=== PATIENT | female | born 1945 | race Caucasian/White ===

== ENCOUNTER → 2017-06-27 | Outpatient (CLI) | payer MEDICARE, OTHER ==
--- NOTE | 2017-06-27 14:06 | KCIC ---
EXAM: Lumbar spine MRI without contrast. HISTORY: Lumbar radiculopathy. TECHNIQUE: Multiplanar, multisequence magnetic resonance imaging of the lumbar spine was performed without contrast. COMPARISON: Radiographs dated 02/05/2017. FINDINGS: There is grade 1 anterolisthesis of L3 on L4, measuring 5 mm. There is 4 mm retrolisthesis of L5 on S1. There is degenerative endplate remodeling with disc space narrowing and osteophytosis primarily at L5-S1. There is diffuse disc desiccation. There are multiple endplate Schmorl's nodes. There are a few vertebral body hemangiomas. No suspicious osseous lesion is seen. The conus terminates at L1. At L1-L2, there is a disc bulge and endplate remodeling. There is no stenosis. At L2-L3, there is a disc bulge and endplate remodeling. There is minimal facet arthropathy. There is mild bilateral foraminal stenosis. At L3-L4, there is a disc bulge and endplate remodeling with posterior annular tear. There is moderate facet arthropathy. There is hypertrophy of the ligamentum flavum. There is grade 1 anterolisthesis. There is mild central canal stenosis. At L4-L5, there is a broad-based shallow posterior central disc protrusion and right foraminal to extraforaminal disc protrusion and annular tear superimposed on a disc bulge and endplate osteophytosis. There is mild facet arthropathy. There is mild right foraminal stenosis. There is mild central canal stenosis. At L5-S1, there are left greater than right foraminal to lateral disc osteophyte complexes superimposed on a disc bulge and endplate osteophytosis. There is mild right and mild to moderate left foraminal stenosis. IMPRESSION: 1. Multilevel degenerative change throughout the lumbar spine, described in detail above. This results in mild bilateral foraminal stenosis at L2-L3, mild central canal stenosis at L3-L4, mild right foraminal and central canal stenosis at L4-L5, and mild right and [id number] left foraminal stenosis at L5-S1. 2. Grade 1 anterolisthesis of L3 on L4 and slight retrolisthesis of L5 on S1. Electronically signed by: Alicia Lemus MD (06/27/2017 2:03 PM) [id number]
== END | disposition home or self-care (01) ==
LOC: KCIC MRI 12:02
PROVIDERS: ATTEND Physician Assistant Medical
DX: M54.16 Radiculopathy, lumbar region (principal); M48.061 Spinal stenosis, lumbar region without neurogenic claudication; M43.16 Spondylolisthesis, lumbar region
CPT/HCPCS: 72148

== ENCOUNTER → 2019-07-27 | Outpatient (CLI) | payer MEDICARE, OTHER ==
[~2019-07-27] MED LIST: FENO145T PO; LEVO100T PO; MONT10TA49 PO; OMEG100021 PO; VENTOLIN HFA18 GM INH
[2019-07-27 09:35] LABS: BASO # 0.1 x10^3/uL (0.0-0.2); BASO % 1 % (0-3); EOS # 0.2 x10^3/uL (0.0-0.7); EOS % 2 % (0-3); HEMATOCRIT 44.4 % (36.0-47.0); LYMPH # 1.3 x10^3/uL (1.0-4.8); LYMPH % 15 % (24-48); MEAN CORPUSCULAR HEMOGLOBIN 32 pg (25-35); MEAN CORPUSCULAR HGB CONC 34 g/dL (31-37); MEAN CORPUSCULAR VOLUME 95 fL (79-100); MONO # 0.8 x10^3/uL (0.0-1.1); MONO % 8 % (0-9); NEUT # 6.9 x10^3/uL (1.8-7.7); NEUT % 75 % (31-73); PLATELET COUNT 270 x10^3/uL (140-400); RED BLOOD COUNT 4.67 x10^6/uL (3.50-5.40); RED CELL DISTRIBUTION WIDTH 13.2 % (11.5-14.5); WHITE BLOOD COUNT 9.3 x10^3/uL (4.0-11.0)
[2019-07-27 09:44] LABS: PROTHROMBIN TIME PATIENT 12.2 SEC (11.7-14.0)
[2019-07-27 09:50] LABS: ALBUMIN 3.7 g/dL (3.4-5.0); CALCIUM 8.9 mg/dL (8.5-10.1); CREATININE 0.7 mg/dL (0.6-1.0); POTASSIUM 3.9 mmol/L (3.5-5.1)
--- NOTE | 2019-07-27 12:48 | EKG ---
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
--- NOTE | 2019-07-27 16:41 | RAD ---
CHEST PA LATERAL INDICATION: Preoperative exam. COMPARISON STUDY: None. FINDINGS: Lungs: Normal lung volume. No pulmonary mass or consolidation. The tracheobronchial tree and hilar structures are normal. Pleura: No pleural effusion or pneumothorax. Heart and Mediastinum: The cardiomediastinal silhouette is normal. The great vessels of the thorax are normal. Bones and Soft Tissues: Degenerative changes of the spine. IMPRESSION: No acute cardiopulmonary process. Electronically signed by: Cullen Hobbs MD (07/27/2019 4:38 PM) [facility]
== END | disposition home or self-care (01) ==
LOC: SURGPAT 12:41
PROVIDERS: ATTEND Orthopaedic Surgery Sports Medicine
DX: Z01.818 Encounter for other preprocedural examination (principal); E78.5 Hyperlipidemia, unspecified; M17.11 Unilateral primary osteoarthritis, right knee; Z88.8 Allergy status to other drugs, medicaments and biological substances
CPT/HCPCS: 36415; 71046; 80048; 82040; 82306; 85025; 85610; 85651; 85730; 87641; 93005

== ENCOUNTER → 2021-01-24 | Outpatient (CLI) | payer MEDICARE, OTHER ==
[2019-08-13 05:17] VITALS: BP 100/54
[~2021-01-24] MED LIST changes: +LEVO-101 PO; -LEVO100T PO; +OXYC5TAB88 PO; +WARF-31 PO
--- NOTE | 2021-01-24 16:38 | KCIC ---
STUDY: MRI of the left knee without contrast INDICATION: Left knee pain. COMPARISON: No prior MRI. TECHNIQUE: Multiplanar MR imaging of the left knee performed without the use of intravenous or intra- articular contrast. FINDINGS: Menisci: Complete tear at the medial meniscus posterior root with associated mild extrusion of the me niscal body from the joint line. Background of myxoid degeneration. The lateral meniscus is intact. Cruciate ligaments: Intact. Collateral ligaments: Reactive edema along the medial and lateral collateral ligaments, IT band and r [place]. No acute ligamentous injury. Mild chronic thickening of the proximal FCL and TCL. Tendons: Intact. Cartilage: Patellofemoral: Patellar more so than trochlear chondrosis which is highest grade/full-thickness at t he upper half of the lateral patellar facet. Lateral compartment: Scattered chondromalacia and chondral thinning without a full-thickness defect. Medial compartment: High-grade/full-thickness chondral defect measuring approximately 9 x 10 mm at th e junction of the inner weightbearing and posterior nonweightbearing medial femoral condyle, image 20 series 8. Bones: Mild degenerative subchondral signal most notably at the lateral patellar facet. Scattered sma ll osteophytes. Miscellaneous: Small/moderate knee joint effusion and a small Morales's cyst. Multifocal soft tissue ed pretty. IMPRESSION: 1. Complete tear at the medial meniscus posterior root with associated extrusion of the meniscal bod y from the joint line. Background myxoid degeneration. Intact lateral meniscus and cruciate ligaments . 2. 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 3. Small/moderate knee joint effusion and a small Morales's cyst. Multifocal reactive soft tissue leslie a. Electronically signed by: DAVON THEODORE MD (01/24/2021 4:36 PM) [place] [id number]
== END ==
LOC: KCIC MRI 14:22
PROVIDERS: ATTEND Physician Assistant Medical
DX: S83.232A Complex tear of medial meniscus, current injury, left knee, initial encounter (principal); M25.462 Effusion, left knee; M71.22 Synovial cyst of popliteal space [Baker], left knee; M79.89 Other specified soft tissue disorders; M25.762 Osteophyte, left knee; M94.262 Chondromalacia, left knee; X58.XXXA Exposure to other specified factors, initial encounter; Y93.89 Activity, other specified; Y92.89 Other specified places as the place of occurrence of the external cause; Y99.8 Other external cause status
CPT/HCPCS: 73721